=== PATIENT | female | born 1950 | race Caucasian/White ===

== ENCOUNTER 2022-10-03 07:01 | Outpatient (OUT) | payer MEDICARE, SELFPAY ==
--- NOTE | 2022-10-03 07:31 | XR_ITS ---
The [address] [address] Patient Name: KOFFI GIL MRN: [id number] date: 1950 Sex: F [facility] Current Patient Location: [facility] Accession/Order Number: [id number] Exam Date: 10/03/2022 09:08 Report Date: 10/03/2022 09:28 At the request of: MONIKA MORTENSEN Procedure: XR chest 2V EXAM: XR chest 2V HISTORY: PRE-OP, ASTHMA COMPARISON: None. TECHNIQUE: PA and lateral views of the chest. FINDINGS: The cardiomediastinal silhouette is normal. No focal consolidation is identified. There is no pneumothorax. No pleural effusion is noted. The osseous structures are intact. XR/XR chest 2V IMPRESSION: No acute cardiopulmonary process. Electronically authenticated by: BRYN RIVERA Date: 10/03/2022 09:28
--- NOTE | 2022-10-03 07:31 | ECG_ITS ---
The [facility] Test Date: 2022-10-03 Pat Name: KOFFI GIL Department: Room: - Gender: Female Health Data Analyst: : 1950 Requested By: RACHAEL HAYWARD Order Number: [id number] Reading MD: CRISTI FLOWERS Measurements Intervals [place] Rate: 68 P: 101 AK: 136 QRS: 21 QRSD: 80 T: 108 QT: 361 QTc: 385 Interpretive Statements SINUS RHYTHM POSSIBLE LEFT ATRIAL ENLARGEMENT [-0.1mV P WAVE IN V1/V2] NONSPECIFIC ST & T-WAVE ABNORMALITY No previous ECG available for comparison Electronically Signed On 10-04-2022 6:40:12 EDT by CRISTI FLOWERS
--- NOTE | 2022-10-03 08:58 | PM.PRESUREVA ---
History of Present Illness History of Present Illness Chief complaint: left kidney stone Narrative: Patient presents for preadmission testing. The patient reports a long history of kidney stones. She states she was the very 1st patient in the to undergo lithotripsy in [place]. The patient states she had a follow-up with Dr. Arizmendi and it was determined that she does have a left-sided kidney stone, this was found a couple of months ago, but the patient was unable to hold her Eliquis at that time and the procedure was postponed. The patient states she is not having any urologic complaints. She denies dysuria, hematuria, flank pain, or any other complaints. She does state that she has a history of dyspnea on exertion since her stroke in November 2021 area she also has a loop recorder. Review of Systems ROS Narrative REVIEW OF SYSTEMS: Negative except as stated in HPI, ten or more systems reviewed. Constitutional: No fever , chills, weakness ENT: No sore throat or epistaxis Cardiovascular: No edema, chest pain, or palpitations. Respiratory: No shortness of breath, cough, or wheezing Musculoskeletal: No joint pain or swelling Gastrointestinal: No abdominal pain, constipation, diarrhea, or vomiting Genitourinary: No dysuria or hematuria Neurological: No numbness, tingling, weakness, or headache Psychiatric: No mood changes [facility] Medical History (Updated 10/03/22 @ 08:56 by Marli Zarate NP) (11/21/21) (1992) Surgical History (Updated 10/03/22 @ 08:36 by Marli Zarate NP) (2002) Family History (Updated 10/03/22 @ 08:36 by Marli Zarate NP) Other Congestive heart failure Family history of colon cancer Social History (Updated 10/03/22 @ 08:29 by Marli Zarate NP) Within the past year, how often did you have a drink containing alcohol: never Score interpretation: A score less than 3 is consistent with normal alcohol consumption. Smoking status: Never smoker Non-prescribed substance use: denies use Highest level of school completed/degree received: high school graduate Meds Home Medications and Allergies Home Medications Medication Instructions Recorded Confirmed Type apixaban 5 mg tablet (Eliquis) 5 mg PO Q12H 10/03/22 10/03/22 History aspirin 81 mg tablet,delayed 81 mg PO QDAY 10/03/22 10/03/22 History release atorvastatin 40 mg tablet 40 mg PO .QHS 10/03/22 10/03/22 History estradiol 0.01% (0.1 mg/gram) 1 appful vaginal QDAY 10/03/22 10/03/22 History vaginal cream metformin 500 mg tablet,extended 500 mg PO QDAY 10/03/22 10/03/22 History release 24 hr methylprednisolone 4 mg tablet 2 mg PO Q12H 10/03/22 10/03/22 History potassium citrate 15 mEq (1,620 15 meq PO QDAY 10/03/22 10/03/22 History mg) tablet,extended release Allergies Allergy/AdvReac Type Severity Reaction Status Date / Time Penicillins Allergy Rash Verified 10/03/22 08:24 Sulfa (Sulfonamide Allergy Rash Verified 10/03/22 08:24 Antibiotics) Exam Narrative Exam Narrative: Constitutional: Awake, alert, comfortable, well-appearing, nontoxic, interactive, vital signs as charted Head: Normocephalic, atraumatic Neck: Supple, normal appearance, normal range of motion, no meningeal signs, no lymphadenopathy Respiratory: No respiratory distress, breath sounds clear Cardiovascular: Regular rate and rhythm, strong and regular heart tones, left chest tenderness overlying loop recorder Abdomen: Nontender, normal bowel sounds, soft, no CVA tenderness Musculoskeletal: Normal gait, no swelling or edema Skin: No rashes or induration, no lesions, only visible skin inspected Neuro: No neurological deficits, normal sensation Psychiatric: Oriented ?3, normal affect Assessment and Plan Assessment and Plan (1) Kidney stones: Plan Left ESWL scheduled with Dr. Arizmendi 10/17/2022.
[2022-10-03 09:21] LABS: Hematocrit 42.9 % (36.0-48.0); Mean Corpuscular HGB Conc 32.6 g/dL (29.9-35.2); Mean Corpuscular Hemoglobin 30.6 pg (26.7-34.0); Mean Corpuscular Volume 93.7 fL (81.0-99.0); Mean Platelet Volume 11.3 fL (9.5-13.5); Platelet Count 214 10^3/uL (150-450); Red Blood Count 4.58 10^6/uL (4.20-5.40); White Blood Count 12.3 10^3/uL (4.0-11.0)
[2022-10-03 09:27] LABS: INR 0.96; Partial Thromboplastin Time 29.8 sec (22.3-36.2); Prothrombin Time 10.2 sec (9.0-11.6)
[2022-10-03 10:41] LABS: Lymphocytes Absolute Manual 2.46 10^3/uL (1.20-3.80); Monocytes Absolute Manual 1.59 10^3/uL (0.30-0.80); Segmented Neut Absolute Manual 7.99 10^3/uL (1.4-6.5)
[2022-10-03 11:54] LABS: Anion Gap 13.4; BUN Creatinine Ratio 19.8; Calcium 9.4 mg/dL (8.5-10.1); Carbon Dioxide 26.5 mmol/L (21.0-32.0); Chloride 106 mmol/L (98-107); Estimated GFR (African America >60 (>=60); Estimated GFR (Non-African Ame 54 (>=60); Glucose 120 mg/dL (74-106); Potassium 3.9 mmol/L (3.5-5.1); Sodium 142 mmol/L (136-145)
== END 2022-10-03 07:02 | disposition home or self-care (01) ==
PROVIDERS: Urology; PCP Family Medicine
DX: Z01.812 Encounter for preprocedural laboratory examination (principal); Z01.811 Encounter for preprocedural respiratory examination; Z01.810 Encounter for preprocedural cardiovascular examination; Z01.818 Encounter for other preprocedural examination; N20.0 Calculus of kidney; E11.9 Type 2 diabetes mellitus without complications; Z79.01 Long term (current) use of anticoagulants
CPT/HCPCS: 36415; 71046; 80048; 85007; 85025; 85027; 85610; 85730; 93005; G0463

== ENCOUNTER 2022-10-17 15:32 | Observation (INO) | payer MEDICARE, SELFPAY ==
[2022-10-03 08:30] VITALS: BP 152/84; PULSE 73; RESP 20; TEMP 36.2; O2SAT 96; BMI 26.4
[2022-10-17] VITALS (39 sets, daily range): BP systolic 118–221; BP diastolic 69–125; PULSE 54–79; RESP 6–21; TEMP 36.2–36.6; O2SAT 90–100; BMI 25.8
--- NOTE | 2022-10-17 11:15 | XR_ITS ---
The [address] [address] Patient Name: KOFFI GIL MRN: [id number] date: 1950 Sex: F Assigned Patient Location: [facility] Current Patient Location: [facility] Accession/Order Number: [id number] Exam Date: 10/17/2022 11:22 Report Date: 10/17/2022 13:03 At the request of: MONIKA MORTENSEN Procedure: XR abdomen 1V EXAMINATION: XR abdomen 1V HISTORY: kidney stones COMPARISON: XR KUB 02/15/2022 FINDINGS: KIDNEY/URETER - RIGHT: Numerous calcifications, largest is 9 mm and projects over inferior pole. KIDNEY/URETER - LEFT: Numerous calcifications, largest is 5 mm. PELVIS: No visible ureteral stones. Stable pelvic calcifications favoring phleboliths. BOWEL: No abnormal dilation or deviation. BONES: Multilevel moderate marked degenerative disc disease of lumbar spine. OTHER: Negative. No abnormal gaseous collections. XR/XR abdomen 1V IMPRESSION: 1. Grossly stable bilateral nephrolithiasis. 2. Marked degenerative changes of lumbar spine. Electronically authenticated by: KAMALA CONLEY Date: 10/17/2022 13:03
[2022-10-17 11:42] LABS: Glucometer 119 mg/dL (74-106)
[2022-10-17] MEDS: LACTATED RINGER'S SOLUTION 1,000 ML 50 ML IV (11:55)
[2022-10-17] MEDS: CEFAZOLIN SODIUM/DEXTROSE,ISO 2 GM/50 ML PIGGYBACK IV (12:52)
--- NOTE | 2022-10-17 13:51 | PC.NURSE ---
post procedure bruises (2) on left back with some redness around them.
--- NOTE | 2022-10-17 13:56 | PM.URSON ---
Urology Surgery Operative Note Operative Note Procedure Date: 10/17/22 Time Out Performed: yes Pre-op Diagnosis: Left kidney stones Post-op Diagnosis: same Procedures performed: Left extracorporeal shock wave lithotripsy Anesthesia: GETA (LMA, Dr. Alden Weinstein) Primary Surgeon: Carlotta Arizmendi Complications: none Estimated blood loss (mL): 0 Findings: Largest radiopaque stone ~ 8mm in the left lower pole (1800 shocks), few smaller stones within upper and mid calyces (1200 shocks throughout) Specimens: none Drains: none Incision: none Indications for Procedures: 72 year old female patient with left nephrolithiasis who was evaluated in clinic and deemed a candidate for left extracorporeal shock wave lithotripsy. Risks were discussed to include but not limited to bleeding, pain, infection, damage to surrounding structures, inability to treat the stone, residual fragments, obstruction and need for additional procedures. Detailed description of Procedure: After informed consent was obtained, the patient was brought to the operating room and placed on the lithotripsy bed in supine position. Sequential compression devices were placed on bilateral lower extremities. The patient received the appropriate dose of preoperative IV antibiotics (cefazolin 2 g) and general anesthesia LMA was induced. An operative time out was performed confirming the patient's identity, procedure, laterality and safety checks. The patient was positioned with the Siemens Modularis Variostar lithotripter head on the left flank. The lower pole stone was triangulated using fluoroscopy and visualized. A total of 3000 shocks were provided: 1800 to the lower pole stone and 1200 to the other upper to mid calyces. The stones were seen to fragment well. The procedure was concluded and patient was awakened from anesthesia in stable condition. The patient tolerated the procedure well without complications. Plan: Discharge home with strainer and tamsulosin. Follow up in 4 weeks with K[facility]. Other Provider present: No Post Operative care instructions: see dc instructions Attending Doc Confirm Attending Attestation: Yes
--- NOTE | 2022-10-17 14:12 | PC.NURSE ---
Patient is still sedated but is having increase in respirations to where we started from. She has a tremor in the right hand but does not open eyes or communicate yet.
--- NOTE | 2022-10-17 14:22 | PC.NURSE ---
Patient is still sedated but is currently crying. Anesthesiologist is in room due to he not verbally communicating and elevated blood pressure. Physician is at bedside with patient.
--- NOTE | 2022-10-17 14:27 | PC.NURSE ---
blood pressure is 220/120 physician is getting medication to administer to help bring down blood pressure.
--- NOTE | 2022-10-17 14:36 | PC.NURSE ---
PAtient continues to cry. Blood pressure is coming down Dr. Weinstein has chosen to hold off on blood pressure medication at this time
--- NOTE | 2022-10-17 14:53 | PC.NURSE ---
With continued monitoring... Patient is comfortable and blood pressure is 118/95 with heart rate of 57 per monitor. No medication intervention was administered thus far in recovery.
--- NOTE | 2022-10-17 15:00 | PC.NURSE ---
Patient continues to slep and not respond to this sql report writer. Blood pressures remain all over unstable. Physician's are aware.
--- NOTE | 2022-10-17 15:14 | PC.NURSE ---
Patient not responding ti this curriculum writer when asked to squeeze hand or open eyes.
--- NOTE | 2022-10-17 15:21 | PC.NURSE ---
Attempted to awaken patient , patient does not respond with command requests.
--- NOTE | 2022-10-17 16:06 | PC.NURSE ---
Throughout recovery in PACU, patient was unable to respond to this telegraphic typewriter mechanic. Unable to determine if patient had pain as patient would not respond. Anesthesiologist Dr. Weinstein and Dr. Arizmendi were made aware during this whole recovery. Monitored as directed. Blood pressures were all over high and low to administer medications. Dr. Arizmendi made decision to admit patient to Med surg for 23 hour observation until sedation wears. Off. At discharge from PACU blood pressure showed improvement. This telegraphic typewriter mechanic did get a response by sternal rub as patient yelled out. Per patient's spouse this is not the first time patient has not come out of sedation from procedures. Report given theodora Edgar and patient was crying with family at the bedside on med surg.
--- NOTE | 2022-10-17 18:46 | P.HP_ITS ---
H&P: HPI History of Present Illness Chief complaint: left kidney stone Narrative: To see patient for slow resolving anesthesia. She is arousable and and no focal neurological deficits. At time I saw her she does awaken easily just by voice commands. Not but falls right back to sleep. Patient is admitted overnight for observation. She has had trouble with anesthesia like this in the past. [facility] Medical History (Updated 10/17/22 @ 16:26 by Chanel Christianson) (11/21/21) (1992) Surgical History (Updated 10/03/22 @ 08:36 by Marli Zarate NP) (2002) Family History (Updated 10/03/22 @ 08:36 by Marli Zarate NP) Other Congestive heart failure Family history of colon cancer Social History (Updated 10/03/22 @ 08:29 by Marli Zarate NP) Within the past year, how often did you have a drink containing alcohol: never Score interpretation: A score less than 3 is consistent with normal alcohol consumption. Smoking status: Never smoker Non-prescribed substance use: denies use Highest level of school completed/degree received: high school graduate Meds Home Medications and Allergies Home Medications Medication Instructions Recorded Confirmed Type apixaban 5 mg tablet (Eliquis) 5 mg PO Q12H 10/03/22 10/17/22 History aspirin 81 mg tablet,delayed 81 mg PO QDAY 10/03/22 10/17/22 History release atorvastatin 40 mg tablet 40 mg PO .QHS 10/03/22 10/17/22 History estradiol 0.01% (0.1 mg/gram) 1 appful vaginal QDAY 10/03/22 10/17/22 History vaginal cream metformin 500 mg tablet,extended 500 mg PO QDAY 10/03/22 10/17/22 History release 24 hr methylprednisolone 4 mg tablet 2 mg PO Q12H 10/03/22 10/17/22 History potassium citrate 15 mEq (1,620 15 meq PO QDAY 10/03/22 10/17/22 History mg) tablet,extended release tamsulosin 0.4 mg capsule 0.4 mg PO .qhs stone passage #30 10/17/22 Rx caps Allergies Allergy/AdvReac Type Severity Reaction Status Date / Time Penicillins Allergy Rash Verified 10/03/22 08:24 Sulfa (Sulfonamide Allergy Rash Verified 10/03/22 08:24 Antibiotics) Exam Constitutional Vital Signs, click to edit/add: Last Vital Signs Temp 97.9 F 10/17/22 16:00 Pulse 69 10/17/22 17:14 Resp 16 10/17/22 17:14 BP 122/73 10/17/22 17:14 Pulse Ox 94 L 10/17/22 17:14 O2 Del Method Room Air 10/17/22 17:14 Documenting provider has reviewed patient's vital signs: yes Common normals: no apparent distress Chest Common normals: inspection of chest normal Respiratory Common normals: normal respiratory effort, no retractions and clear to auscultation bilaterally Cardio Common normals: regular rate and regular rhythm Neuro Jadiel Coma Scale: document GCS findings (Sedated but d arousable) Common normals: oriented x3, CN's II-XII intact bilaterally and moves all extremities Assessment and Plan Assessment and Plan (1) CVA (cerebral vascular accident): Onset Date: 11/21/21 Plan Nephrolithiasis-plan per urology Postanesthesia somnolence-patient with this in the past. Likely to slow to clear the anesthesia. Observe overnight. Overall patient rapidly improving. Diabetes mellitus-continue with home medications starting tomorrow
[2022-10-17 19:17] LABS: Basophils Percent Auto 0.2 % (0.2-2.0); Eosinophils Absolute Auto 0.1 10^3/uL (0.0-0.7); Eosinophils Percent Auto 0.5 % (0.9-7.0); Hematocrit 40.9 % (36.0-48.0); Hemoglobin 13.2 g/dL (12.0-16.0); Immature Granulocytes Abs Auto 0.39 10^3/uL (0.00-0.03); Immature Granulocytes Pct Auto 3.1 % (0.0-0.5); Lymphocytes Absolute Auto 1.5 10^3/uL (1.2-3.8); Lymphocytes Percent Auto 11.8 % (20.5-60.0); Mean Corpuscular HGB Conc 32.3 g/dL (29.9-35.2); Mean Corpuscular Hemoglobin 30.6 pg (26.7-34.0); Mean Corpuscular Volume 94.9 fL (81.0-99.0); Mean Platelet Volume 11.3 fL (9.5-13.5); Monocytes Absolute Auto 0.4 10^3/uL (0.3-0.8); Monocytes Percent Auto 3.2 % (1.7-12.0); Neutrophils Absolute Auto 10.3 10^3/uL (1.4-6.5); Neutrophils Percent Auto 81.2 % (43.0-75.0); Platelet Count 184 10^3/uL (150-450); Red Blood Count 4.31 10^6/uL (4.20-5.40); Red Cell Distribution Width 12.9 % (11.0-15.0); White Blood Count 12.6 10^3/uL (4.0-11.0)
[2022-10-17 19:30] LABS: Ammonia 36 umol/L (11-32)
[2022-10-17 19:43] LABS: Alanine Aminotransferase 41 U/L (14-59); Albumin Globulin Ratio 0.9; Albumin Level 3.2 g/dL (3.4-5.0); Alkaline Phosphatase 65 U/L (46-116); Anion Gap 14.1; Aspartate Amino Transferase 25 U/L (15-37); BUN Creatinine Ratio 14.2; Bilirubin Total 0.3 mg/dL (0.2-1.0); Calcium 8.2 mg/dL (8.5-10.1); Carbon Dioxide 22.9 mmol/L (21.0-32.0); Chloride 105 mmol/L (98-107); Estimated GFR (African America >60 (>=60); Estimated GFR (Non-African Ame 51 (>=60); Globulin 3.5 g/dL; Glucose 251 mg/dL (74-106); Sodium 138 mmol/L (136-145); Total Protein 6.7 g/dL (6.4-8.2)
[2022-10-17] MEDS: METHYLPREDNISOLONE 4 MG TABLET 2 MG PO (19:55)
[2022-10-17 20:34] LABS: Glucometer 249 mg/dL (74-106)
[2022-10-17] MEDS: INSULIN ASPART 300 UNIT/3 ML PEN SUBQ (21:33)
[2022-10-17] MEDS: ATORVASTATIN CALCIUM 40 MG TABLET PO (21:33)
[2022-10-18 04:55] VITALS: O2SAT 94
[2022-10-18 06:00] VITALS: BP 127/72; PULSE 72; RESP 18; TEMP 36.6; O2SAT 93
[2022-10-18 07:27] LABS: Glucometer 168 mg/dL (74-106)
[2022-10-18] MEDS: ASPIRIN 81 MG TABLET.DR PO (08:31)
[2022-10-18] MEDS: METHYLPREDNISOLONE 4 MG TABLET 2 MG PO (08:32)
[2022-10-18] MEDS: INSULIN ASPART 300 UNIT/3 ML PEN SUBQ (08:36)
--- NOTE | 2022-10-18 08:36 | CM.NOTE ---
Rounds made with Dr. Silva, pt ok to discharge to home today. No discharge needs identified.
[2022-10-18 08:52] LABS: Bilirubin Urine NEGATIVE (NEGATIVE); Blood Urine LARGE (NEGATIVE); Clarity Urine CLEAR (CLEAR); Color Urine LT. YELLOW (YELLOW); Glucose Urine UA NEGATIVE (NEGATIVE); Ketones Urine NEGATIVE (NEGATIVE); Leukocyte Esterase Urine NEGATIVE (NEGATIVE); Nitrite Urine NEGATIVE (NEGATIVE); Protein Urine NEGATIVE (NEG/TRACE); Specific Gravity Urine <=1.005 (1.005-1.025); Urobilinogen Urine 0.2 EU/dL (0.2-1.0); pH Urine 6.5 (5.0-9.0)
--- NOTE | 2022-10-18 08:58 | P.DS_ITS ---
DS: Providers Provider Primary care physician: Pancho Luz MD Consults: 10/17/22 Consult to Hospitalist Routine Consulting Provider: Hospitalist DS: Diagnosis Discharge Diagnosis (1) CVA (cerebral vascular accident): Onset Date: 11/21/21 Assessment and plan: Patient with sedation postoperatively no focal neurological deficits Plan Hypopnea status post anesthesia NIDDM History of CVA Leukocytosis Bradycardia DS: Summary Hospital Course Hospital Course: Patient was in for treatment of kidney stones. She has significant hypopnea after the procedure. Difficult to arouse. But no focal neurological deficits when she was aroused. She was observed overnight. She feels much improved today. He has had this issue with anesthesia previously. Her white blood cell count is slightly elevated will check UA, her UA did not show any sign of infection. Had the blood as expected from the procedure. At this point we will discharge patient to home in improved condition. Medications see list. Follow- up with her PCP and urology per protocol Time Spent with Patient Time attestation: Total time spent providing and/or coordinating discharge services: Exam Constitutional Vital Signs, click to edit/add: Last Vital Signs Temp 97.9 F 10/18/22 06:00 Pulse 72 10/18/22 06:00 Resp 18 10/18/22 06:00 BP 127/72 10/18/22 06:00 Pulse Ox 93 L 10/18/22 06:00 O2 Del Method Room Air 10/18/22 06:00 DS: Data Data Completed and Pending Labs on day of discharge: Labs from last 24 hours 10/18/22 10/18/22 10/17/22 08:45 07:25 20:33 WBC RBC Hgb Hct MCV MCH MCHC RDW Plt Count MPV Neut % (Auto) Lymph % (Auto) [place] % (Auto) Eos % (Auto) Baso % (Auto) Neut # (Auto) Lymph # (Auto) [place] # (Auto) Eos # (Auto) Baso # (Auto) Abs Immat Gran (auto) Imm/Tot Granulo (auto) Sodium Potassium Chloride Carbon Dioxide Anion Gap BUN Creatinine Est GFR ( Amer) Est GFR (Non-Af Amer) BUN/Creatinine Ratio Glucose Calcium Total Bilirubin AST ALT Alkaline Phosphatase Ammonia Total Protein Albumin Globulin Albumin/Globulin Ratio Urine Color Lt. yellow Urine Clarity Clear Urine pH 6.5 Ur Specific [place] <=1.005 A Urine Protein Negative Urine Glucose (UA) Negative Urine Ketones Negative Urine Occult Blood Large A Urine Nitrite Negative Urine Bilirubin Negative Urine Urobilinogen 0.2 Ur Leukocyte Esterase Negative POC Glucose 168 H 249 H 10/17/22 10/17/22 19:01 11:40 WBC 12.6 H RBC 4.31 Hgb 13.2 Hct 40.9 MCV 94.9 MCH 30.6 MCHC 32.3 RDW 12.9 Plt Count 184 MPV 11.3 Neut % (Auto) 81.2 H Lymph % (Auto) 11.8 L [place] % (Auto) 3.2 Eos % (Auto) 0.5 L Baso % (Auto) 0.2 Neut # (Auto) 10.3 H Lymph # (Auto) 1.5 [place] # (Auto) 0.4 Eos # (Auto) 0.1 Baso # (Auto) 0.0 Abs Immat Gran (auto) 0.39 H Imm/Tot Granulo (auto) 3.1 H Sodium 138 Potassium 4.0 Chloride 105 Carbon Dioxide 22.9 Anion Gap 14.1 BUN 15.0 Creatinine 1.06 H Est GFR ( Amer) >60 Est GFR (Non-Af Amer) 51 L BUN/Creatinine Ratio 14.2 Glucose 251 H Calcium 8.2 L Total Bilirubin 0.3 AST 25 ALT 41 Alkaline Phosphatase 65 Ammonia 36 H Total Protein 6.7 Albumin 3.2 L Globulin 3.5 Albumin/Globulin Ratio 0.9 Urine Color Urine Clarity Urine pH Ur Specific [place] Urine Protein Urine Glucose (UA) Urine Ketones Urine Occult Blood Urine Nitrite Urine Bilirubin Urine Urobilinogen Ur Leukocyte Esterase POC Glucose 119 H Discharge Plan Discharge Condition: Good Discharge Medications: New tamsulosin 0.4 mg capsule 0.4 mg PO .qhs Qty: 30 1RF No Action Eliquis 5 mg tablet 5 mg PO Q12H aspirin 81 mg tablet,delayed release (DR/EC) 81 mg PO QDAY atorvastatin 40 mg tablet 40 mg PO .QHS estradiol 0.01 % (0.1 mg/gram) cream 1 appful VAGINAL QDAY metformin 500 mg tablet extended release 24 hr 500 mg PO QDAY methylprednisolone 4 mg tablet 2 mg PO Q12H potassium citrate 15 mEq tablet extended release 15 meq PO QDAY Activity: increase activity as tolerated Diet: advance to your usual diet Patient Instructions: Tamsulosin (By mouth), Lithotripsy (DC) Activity Restrictions/Additional Instructions: Tylenol 650-1000 mg every 6 hours as needed for post-op pain. Tamsulosin daily for stent pain, difficulty voiding. If you get dizzy or lightheaded, take at night or stop. Do not take with other blood pressure medications AZO for urinary discomfort/burning can be purchased at local pharmacy. This will make your urine orange. Strain urine to collect stone fragments and keep in dry container to bring to follow up. OK to restart ASA 81 mg today postop. Restart Eliquis tomorrow if no blood in urine. Return to ER for fevers > 101.5F, uncontrolled nausea/emesis, uncontrolled pain, or inability to void. SEDATION - For the next 24 hours: * Take it easy and rest today. You do not need to stay in bed, but avoid strenuous activities. * You may resume normal activities tomorrow. * DO NOT drive a car. * DO NOT make any important personal or business decisions or sign any legal documents. * DO NOT operate machinery such as power tools, lawn mowers, snow blowers, sewing machines, etc. * DO NOT stay alone. Referrals: Carlotta Arizmendi MD [Physician] - (In 1 month with K[facility] and passed stones. ) Follow Up Appointments: Follow up appt. with Dr. Luz on . @ 1:15pm Office #: [phone] Please make a 4-week follow up appt. with Dr. Arizmendi tomorrow 10/19. Office #: [phone]
[2022-10-18 09:05] LABS: WBC Urine NONE SEEN #/HPF (NONE SEEN)
[2022-10-18 09:06] LABS: Bacteria Urine TRACE #/HPF (NONE SEEN); Cast Seen? NONE SEEN #/LPF (NONE SEEN); Crystals Seen? None Seen #/HPF (None Seen); Mucus Urine NONE SEEN (NONE SEEN); Squamous Epithelial Cell Urine NONE SEEN #/LPF (NONE/RARE)
--- NOTE | 2022-10-18 10:30 | CM.NOTE ---
Medicare Outpatient Observation Notice discussed with pt, pt verbalizes understanding and signs paper. Original given to pt and copy placed on chart.
== END 2022-10-18 10:09 | disposition home or self-care (01) ==
LOC: MS 18:40
PROVIDERS: Family Medicine; Admitting Provider Urology; PCP Family Medicine; Visit Provider Urology
PROC: (CPT 50590; principal; 2022-10-17 12:30)
DX: N20.0 Calculus of kidney (principal); R06.89 Other abnormalities of breathing; R40.0 Somnolence; T41.0X5A Adverse effect of inhaled anesthetics, initial encounter; E11.9 Type 2 diabetes mellitus without complications; Z86.73 Personal history of transient ischemic attack (TIA), and cerebral infarction without residual deficits; Z79.82 Long term (current) use of aspirin; Z79.899 Other long term (current) drug therapy; Z79.01 Long term (current) use of anticoagulants; R00.1 Bradycardia, unspecified; D72.829 Elevated white blood cell count, unspecified
CPT/HCPCS: 50590; 36415; 74018; 80053; 81001; 82140; 82948; 85025; 94761; G0378; J2704

== ENCOUNTER 2022-11-15 10:54 | Outpatient (OUT) | payer MEDICARE, SELFPAY ==
[2022-11-15 12:15] LABS: Estimated Average Glucose 174 mg/dL; Glycohemoglobin A1C 7.7 % (4.5-6.2)
== END 2022-11-15 10:55 | disposition home or self-care (01) ==
LOC: LAB 10:57
PROVIDERS: PCP Family Medicine; Visit Provider Family Medicine
DX: E11.65 Type 2 diabetes mellitus with hyperglycemia (principal)
CPT/HCPCS: 36415; 83036

== ENCOUNTER 2023-03-14 07:37 | Outpatient (OUT) | payer MEDICARE, SELFPAY ==
--- NOTE | 2023-03-14 07:47 | CT_ITS ---
The [address] [address] Patient Name: KOFFI GIL MRN: [id number] date: 1950 Sex: F Assigned Patient Location: LAB Current Patient Location: LAB Accession/Order Number: [id number] Exam Date: 03/14/2023 08:50 Report Date: 03/14/2023 10:42 At the request of: RACHAEL HAYWARD Procedure: CT abdomen pelvis wo/w con CT abdomen pelvis wo/w con, 03/14/2023 8:50 AM EST INDICATION: abdominal pain R10.84 COMPARISON: Prior CT of the abdomen pelvis dated 11/03/2021 TECHNIQUE: Axial images of the abdomen were obtained after the administration of IV contrast. Multiplanar reformatted images were generated and reviewed as needed. Dose reduction techniques were achieved by using automated exposure control and/or adjustment of mA and/or kV according to patient size and/or use of iterative reconstruction technique. FINDINGS: Lungs: The base of lungs is clear. No pleural effusion is noted. Liver and gallbladder: The liver and gallbladder are unremarkable. No enlargement of intra or extrahepatic biliary ducts. Genitourinary system: No hydronephrosis. Bilateral nonobstructive nephrolithiasis. The largest stone is within the right ureteropelvic junction measuring approximately 1 cm. No hydronephrosis is noted. There is a mild right hydroureter decrease in size since prior study. There are 4 and 6 mm ureterolithiasis in the distal left ureter with no hydroureteronephrosis. No abnormality of the opacified ureters is noted. Mild enhancement of the right pelvis and proximal ureter likely due to inflammatory/infection. No abnormality of the urinary bladder is noted. Other solid abdominal organs: adrenal glands, pancreas, and spleen are unremarkable. Aorta: The infrarenal abdominal aorta is nonaneurysmal. Free fluid: There is no free fluid in the abdomen pelvis. Lymph node: No lymph node enlargement by size criteria is noted. Stomach and Bowel: No abnormality of the stomach is noted. No abnormality of small or large bowel is noted. Bone: There is no suspicious osteolytic or osteoblastic lesion. There is diffuse demineralization of bone. CT/CT abdomen pelvis wo/w con IMPRESSION: 1 cm stone within the right ureteropelvic junction. Enhancement of the right pelvis and proximal ureter likely due to inflammatory versus infectious process. Correlation with UA is recommended. Few ureterolithiasis measuring up to 6 mm in the distal left ureter with no hydroureter nephrosis. A stat note was submitted to inform the clinician at 10:40 AM. Electronically authenticated by: CRISTINA NIEVES Date: 03/14/2023 10:42
[2023-03-14 07:56] LABS: Anion Gap 11.7; BUN Creatinine Ratio 18.9; Carbon Dioxide 28.1 mmol/L (21.0-32.0); Chloride 105 mmol/L (98-107); Estimated GFR (African America >60 (>=60); Estimated GFR (Non-African Ame 58 (>=60); Glucose 124 mg/dL (74-106); Potassium 3.8 mmol/L (3.5-5.1); Sodium 141 mmol/L (136-145)
== END 2023-03-14 07:38 | disposition home or self-care (01) ==
LOC: LAB 07:37
PROVIDERS: PCP Family Medicine; Visit Provider Family Medicine
DX: R10.84 Generalized abdominal pain (principal); Z79.899 Other long term (current) drug therapy; N20.1 Calculus of ureter
CPT/HCPCS: 36415; 74178; 80048; Q9967